=== PATIENT | female | born 1980 | race Caucasian/White ===

== ENCOUNTER 2024-09-27 21:30 | Emergency (ER) | payer BC, MEDICARE ==
[2024-09-27] MEDS ORDERED: Naloxone 0.4 MG/ML SDV IVPUSH PRN (21:38)
[2024-09-27] MEDS: fentaNYL 50 MCG/ML SDV IVPUSH ONE (21:45)
[2024-09-27] MEDS: methylPREDNISolone Sodium Succinate 125 MG/2 ML SDV IVPUSH ONE (21:46)
[2024-09-27] MEDS: Ketorolac 15 MG/ML SDV IVPUSH ONE (21:46)
[2024-09-27] MEDS: Orphenadrine 60 MG/2 ML Inj IV ONE (21:46)
[2024-09-27] MEDS: Sodium Chloride 0.9% 10 ML Syringe FLUSH PRN (21:53)
[2024-09-27] MEDS: Take Home: Orphenadrine 100 MG Tab.ER, 4 Tab Pack PO ONE (23:12)
[2024-09-27] MEDS: Take Home: oxyCODONE HCl 5 MG Tab, 5 Tab Pack PO ONE (23:12)
== END 2024-09-27 23:15 | disposition home or self-care (01) ==
LOC: LL.ED 21:30
DX: M54.50 Low back pain, unspecified (principal); E66.9 Obesity, unspecified; F17.210 Nicotine dependence, cigarettes, uncomplicated; Z90.49 Acquired absence of other specified parts of digestive tract; Z90.710 Acquired absence of both cervix and uterus; Z79.899 Other long term (current) drug therapy; Z88.2 Allergy status to sulfonamides; Z88.8 Allergy status to other drugs, medicaments and biological substances; Z91.048 Other nonmedicinal substance allergy status; Z91.018 Allergy to other foods; Z88.0 Allergy status to penicillin
CPT/HCPCS: 96374; 96375; 99283-25; 99284; A9270-GY; J1885; J2360; J2919; J3010

== ENCOUNTER 2024-09-28 09:58 | Observation (INO) | payer BC, MEDICARE ==
[2024-09-28] MEDS ORDERED: Naloxone 0.4 MG/ML SDV IVPUSH PRN (10:13)
[2024-09-28] MEDS: Sodium Chloride 0.9% 10 ML Syringe FLUSH PRN (11:15)
[2024-09-28] MEDS: Ondansetron 4 MG/2 ML SDV IVPUSH ONE (11:15)
[2024-09-28] MEDS: Ketorolac 15 MG/ML SDV IVPUSH ONE (11:16)
[2024-09-28] MEDS: Orphenadrine 60 MG/2 ML Inj IV ONE (11:21)
[2024-09-28] MEDS: Morphine 2 MG/ML SYRINGE IVPUSH ONE (11:21)
[2024-09-28] MEDS: methylPREDNISolone Sodium Succinate 125 MG/2 ML SDV IVPUSH ONE (11:22)
[2024-09-28] MEDS ORDERED: QUEtiapine 25 MG Tab PO PRN (13:52)
[2024-09-28] MEDS ORDERED: Morphine 2 MG/ML SYRINGE IVPUSH PRN (14:00)
[2024-09-28] MEDS ORDERED: ClonazePAM 0.5 MG Tab PO PRN (14:19)
[2024-09-28] MEDS: Ketorolac 15 MG/ML SDV IVPUSH SCH (16:46)
[2024-09-28] MEDS ORDERED: Ondansetron 4 MG/2 ML SDV IVPUSH PRN (17:00)
[2024-09-28] MEDS: oxyCODONE 5 MG Tab PO PRN (20:09)
[2024-09-28] MEDS: Orphenadrine 60 MG/2 ML Inj IV SCH (22:03)
[2024-09-29] MEDS: buPROPion 150 MG Tab.SR PO SCH (07:18)
[2024-09-29] MEDS: ARIPiprazole 10 MG Tab PO SCH (07:18)
[2024-09-29] MEDS: oxyCODONE 5 MG Tab PO PRN (07:19)
[2024-09-29] MEDS: methylPREDNISolone Sodium Succinate 125 MG/2 ML SDV IVPUSH ONE (07:30)
[2024-09-29 09:18] LABS: BASOPHILS ABSOLUTE AUTO 0.03 K/uL (0.00-0.20); BASOPHILS PERCENT AUTO 0.1 % (0.0-2.0); HEMATOCRIT 43.1 % (34.0-46.0); HEMOGLOBIN 14.1 g/dL (11.7-15.5); IMMATURE GRAN ABSOLUTE AUTO 0.06 10^3/uL (0.00-0.04); IMMATURE GRAN PERCENT AUTO 0.3 % (0.0-0.4); LYMPHOCYTES ABSOLUTE AUTO 3.23 K/uL (0.50-3.50); LYMPHOCYTES PERCENT AUTO 15.7 % (10.0-50.0); MEAN CORPUSCULAR HEMOGLOBIN 29.4 pg (28.2-33.3); MEAN CORPUSCULAR HGB CONC 32.7 g/dL (31.7-36.0); MEAN CORPUSCULAR VOLUME 89.8 fL (84.0-98.0); MONOCYTES ABSOLUTE AUTO 0.96 K/uL (0.00-1.00); MONOCYTES PERCENT AUTO 4.7 % (2.0-14.0); NEUTROPHILS ABSOLUTE AUTO 16.29 K/uL (1.40-7.00); NEUTROPHILS PERCENT AUTO 79.2 % (45.0-80.0); PLATELET COUNT,PLT 226 K/uL (150-350); RED CELL DISTRIBUTION WIDTH 12.1 % (11.2-14.1); WHITE BLOOD CELL COUNT,WBC 20.6 K/uL (4.0-10.2)
[2024-09-29 09:35] LABS: ALBUMIN 3.6 g/dL (3.4-5.0); ANION GAP 9.4 meq/L (7-15); BILIRUBIN TOTAL 0.3 mg/dL (0.2-1.0); CALCIUM 8.7 mg/dL (8.5-10.1); CARBON DIOXIDE,CO2 27.6 mmol/L (21.0-32.0); CREATININE 1.1 mg/dL (0.51-1.17); EST CRCL DRUG DOSING (CG) 55.18 mL/min; POTASSIUM,K 4.6 mmol/L (3.5-5.1); PROTEIN TOTAL,TP 6.6 g/dL (6.4-8.2)
[2024-09-29] MEDS: Orphenadrine 100 MG Tab.ER PO SCH (10:48)
[2024-09-29] MEDS: predniSONE 20 MG Tab PO ONE (10:48)
[2024-09-29] MEDS: Lactulose Soln 10 GM/15 ML 30 ML UD Cup PO ONE (10:49)
[2024-09-29] MEDS: Polyethylene Glycol 3350 Powder 17 GM Packet PO ONE (10:50)
== END 2024-09-29 13:04 | disposition home or self-care (01) ==
LOC: LL.ED 09:58 → LL.MS 13:05
PROVIDERS: ADMIT Emergency Medicine; ATTEND Emergency Medicine
DX: M54.31 Sciatica, right side (principal); F31.9 Bipolar disorder, unspecified; Z88.0 Allergy status to penicillin; Z88.2 Allergy status to sulfonamides; Z91.018 Allergy to other foods
CPT/HCPCS: 36415; 72131; 80053; 85025; 94761; 96374; 96375; 96376; 99284-25; A9270-GY; G0378; J1885; J2270; J2360; J2405; J2919; J7512

== ENCOUNTER 2025-01-26 16:35 | Emergency (ER) | payer BC, MEDICARE ==
[2025-01-26] MEDS: Acetaminophen 500 MG Tab PO ONE (17:04)
[2025-01-26] MEDS: traMADol 50 MG Tab PO ONE (17:39)
== END 2025-01-26 18:40 | disposition home or self-care (01) ==
LOC: LL.ED 16:35
DX: S99.922A Unspecified injury of left foot, initial encounter (principal); E66.9 Obesity, unspecified; F17.200 Nicotine dependence, unspecified, uncomplicated; M19.90 Unspecified osteoarthritis, unspecified site; Z88.2 Allergy status to sulfonamides; Z88.0 Allergy status to penicillin; Z88.8 Allergy status to other drugs, medicaments and biological substances; Z91.018 Allergy to other foods; Z79.899 Other long term (current) drug therapy; Z79.51 Long term (current) use of inhaled steroids; Z90.49 Acquired absence of other specified parts of digestive tract; Z90.710 Acquired absence of both cervix and uterus; W18.40XA Slipping, tripping and stumbling without falling, unspecified, initial encounter
CPT/HCPCS: 73630-LT; 73700-LT; 99283; A9270-GY

== ENCOUNTER 2025-02-02 16:56 | Emergency (ER) | payer BC, MEDICARE | END 2025-02-02 18:02 | disposition home or self-care (01) | LOC: LL.ED 16:56 | DX: S99.922A Unspecified injury of left foot, initial encounter (principal); E66.9 Obesity, unspecified; F17.200 Nicotine dependence, unspecified, uncomplicated; Z88.0 Allergy status to penicillin; Z88.2 Allergy status to sulfonamides; Z91.018 Allergy to other foods; Z91.048 Other nonmedicinal substance allergy status; Z88.8 Allergy status to other drugs, medicaments and biological substances; Z79.899 Other long term (current) drug therapy; Z90.49 Acquired absence of other specified parts of digestive tract; Z90.710 Acquired absence of both cervix and uterus; X58.XXXA Exposure to other specified factors, initial encounter | CPT/HCPCS: 73630-LT; 99283 ==